=== PATIENT | female | born 1985 | race Caucasian/White ===

== ENCOUNTER 2017-06-07 23:41 | Inpatient (IN) ==
[2017-06-08] MEDS ORDERED: CLINDAMYCIN INJ 900 MG in PREMIX 1 EACH IV ONE (00:01)
[2017-06-08] MEDS ORDERED: FAMOTIDINE 20 MG/2 ML VIAL IV ONE (00:01)
[2017-06-08] MEDS ORDERED: CITRIC ACID/SODIUM CITRATE 30 ML UDCUP PO ONE (00:01)
[2017-06-08] MEDS ORDERED: OXYTOCIN/LR 20 UNIT/1,000 ML BAG IV ONE ×2 (00:03→02:18)
[2017-06-08] MEDS: LACTATED RINGERS 1,000 ML IV SCH ×4 (00:05→23:13)
[2017-06-08 00:26] LABS: Basophils # 0.1 10*3/uL (0.0-0.2); Basophils % 0.4 % (0.0-0.8); Eosinophils # 0.3 10*3/uL (0.0-0.87); Eosinophils % 2.2 % (0.00-10.9); Hematocrit 34.9 VOL% (35.7-47.0); Hemoglobin 12.5 GM/DL (12.0-16.0); Immature Granulocytes % 0.7 %; Immature Granulocytes Absolute 0.09 #; Lymphocytes # 3.1 10*3/uL (1.4-4.0); Lymphocytes % 22.2 % (21.3-54.2); Mean Corpuscular HGB Conc 35.8 GM/DL (32-36); Mean Corpuscular Hemoglobin 33 PG (27-34); Mean Corpuscular Volume 92.1 FL (87-102); Mean Platelet Volume 11.7 FL (9.6-12.0); Monocytes % 7.1 % (1.7-12.7); Neutrophils # 9.3 10*3/uL (1.4-7.4); Neutrophils % 67.4 % (38.7-73.9); Platelet Count 185 T/CUMM (130-400); Red Blood Count 3.79 MC/CUMM (3.8-5.5); Red Cell Distribution Width 13.1 % (9.3-17.3); White Blood Count 13.8 T/CUMM (4-12)
[2017-06-08 00:48] LABS: Albumin 2.6 G/DL (3.4-5.0); Bilirubin,Total 0.5 MG/DL (0.2-1.0); Calcium 9.1 MG/DL (8.5-10.1); Osmolality,Calculated 276.4 MOS/KG (273-304); Potassium 3.9 MMOL/L (3.5-5.1); Total Protein 6.1 G/DL (6.4-8.3)
[2017-06-08] MEDS ORDERED: HYDROmorphone 2 MG/1 ML VIAL ONE (01:55)
[2017-06-08] MEDS ORDERED: INFLUENZA VIRUS VACCINE 0.5 ML SYRINGE IM ONE (01:57)
[2017-06-08] MEDS ORDERED: LANOLIN 50% CREAM 0.3 OZ TUBE TOP PRN (02:18)
[2017-06-08] MEDS ORDERED: ONDANSETRON 4 MG/2 ML VIAL IV PRN ×2 (02:18→02:23)
[2017-06-08] MEDS ORDERED: DIPH/TET/ACEL PERT BOOSTER VACCINE 0.5 ML VIAL IM ONE (02:18)
[2017-06-08] MEDS ORDERED: RHO(D) IMMUNE GLOBULIN 300 MCG SYRINGE IM ONE (02:18)
[2017-06-08] MEDS ORDERED: WITCH HAZEL PADS 100/JAR TOP PRN (02:18)
[2017-06-08] MEDS ORDERED: oxyCODONE/ACETAMINOPHEN 5-325 MG TABLET PO PRN (02:18)
[2017-06-08] MEDS ORDERED: BENZOCAINE 20%/MENTHOL 0.5% SPRAY 56 GM CAN TOP PRN (02:18)
[2017-06-08] MEDS ORDERED: HYDROCORTISONE 2.5% RECTAL CREAM 30 GM TUBE TOP PRN (02:18)
[2017-06-08] MEDS ORDERED: ACETAMINOPHEN 325 MG TABLET PO PRN (02:18)
[2017-06-08] MEDS ORDERED: BISACODYL 10 MG SUPP RECTAL PRN (02:18)
[2017-06-08] MEDS ORDERED: MEASLES/MUMPS/RUBELLA VACCINE 0.5 ML VIAL SUBCUT ONE (02:18)
[2017-06-08] MEDS ORDERED: ePHEDrine 50 MG/ML AMP ONE (02:19)
[2017-06-08] MEDS ORDERED: MORPHINE 10 MG/10 ML VIAL ONE (02:20)
[2017-06-08] MEDS ORDERED: diphenhydrAMINE 50 MG/1 ML VIAL IV PRN (02:23)
[2017-06-08] MEDS ORDERED: HYDROmorphone 2 MG/1 ML VIAL IV PRN (02:23)
[2017-06-08] MEDS ORDERED: hydrOXYzine HCL 25 MG/1 ML VIAL IM PRN (02:23)
[2017-06-08] MEDS ORDERED: SODIUM CHLORIDE 0.9% 1,000 ML IV SCH (02:30)
[2017-06-08 02:59] LABS: Apearance,Urine Slightly Hazy (Clear); Bilirubin,Urine Negative (Negative); Blood, Urine Negative (Negative); Glucose,Urine (UA) Negative (Negative); Ketones,Urine Negative (Negative); Mucus,Urine Occasional /LPF (Occasional); Nitrite,Urine Negative (Negative); Protein,Urine Negative; RBC,Urine <1 /HPF (0-4); Squamous Epithelial Cell,Urine Occasional /HPF (0-10); Urine Color Yellow (Yellow); Urine Specific Gravity 1.005 (1.001-1.035); Urine Urobilinogen < 2.0 EU/DL (0.2-1.0); WBC,Urine 2 /HPF (0-6)
[2017-06-08] MEDS ORDERED: LABETALOL 100 MG TABLET PO ONE (04:00)
[2017-06-08] MEDS: LABETALOL 100 MG TABLET PO SCH ×2 (09:32→21:08)
[2017-06-08] MEDS: oxyCODONE/ACETAMINOPHEN 5-325 MG TABLET PO PRN ×4 (09:32→21:26)
[2017-06-08] MEDS: DOCUSATE SODIUM 100 MG CAPSULE PO SCH ×2 (09:33→21:08)
[2017-06-08 09:46] LABS: Basophils % 0.3 % (0.0-0.8); Eosinophils # 0.1 10*3/uL (0.0-0.87); Eosinophils % 0.5 % (0.00-10.9); Hematocrit 29.3 VOL% (35.7-47.0); Immature Granulocytes % 0.6 %; Immature Granulocytes Absolute 0.08 #; Lymphocytes # 1.6 10*3/uL (1.4-4.0); Lymphocytes % 12.2 % (21.3-54.2); Mean Corpuscular HGB Conc 35.5 GM/DL (32-36); Mean Corpuscular Hemoglobin 33 PG (27-34); Mean Corpuscular Volume 93.6 FL (87-102); Mean Platelet Volume 11.6 FL (9.6-12.0); Monocytes # 0.6 10*3/uL (0.11-0.8); Monocytes % 4.8 % (1.7-12.7); Neutrophils # 10.8 10*3/uL (1.4-7.4); Neutrophils % 81.6 % (38.7-73.9); Red Blood Count 3.13 MC/CUMM (3.8-5.5); Red Cell Distribution Width 13.1 % (9.3-17.3); White Blood Count 13.2 T/CUMM (4-12)
[2017-06-08 09:48] LABS: Hemoglobin 10.4 GM/DL (12.0-16.0); Platelet Count 146 T/CUMM (130-400)
[2017-06-08] MEDS ORDERED: MAGNESIUM HYDROXIDE SUSP 30 ML UDCUP PO PRN (20:51)
[2017-06-08] MEDS: IBUPROFEN 800 MG TABLET PO PRN (21:08)
[2017-06-09] MEDS: IBUPROFEN 800 MG TABLET PO PRN ×2 (04:10→09:46)
[2017-06-09] MEDS: oxyCODONE/ACETAMINOPHEN 5-325 MG TABLET PO PRN ×2 (04:11→09:48)
[2017-06-09] MEDS: LACTATED RINGERS 1,000 ML IV SCH ×2 (07:08)
[2017-06-09 09:07] VITALS: BP 138/80
[2017-06-09] MEDS: DOCUSATE SODIUM 100 MG CAPSULE PO SCH (09:46)
[2017-06-09] MEDS: LABETALOL 100 MG TABLET PO SCH (09:47)
== END 2017-06-09 15:30 | disposition home or self-care (01) | DRG 766 ==
LOC: N.LDOUT 23:41 → N.LD 23:44 → N.OB 06-08 16:55
PROVIDERS: ADMIT Specialist; ATTEND Specialist
PROC: LDCSECT (ICD-10-PCS; 2017-06-08 00:43)